=== PATIENT | female | born 1980 | race Caucasian/White ===

== ENCOUNTER 2021-01-19 07:36 | Day surgery (SDC) | payer OTHER ==
[~2021-01-19] VITALS: Ht 162.6 cm; Wt 68.2 kg
[2021-01-19] VITALS (7 sets, daily range): BP systolic 112–137; BP diastolic 72–86
--- NOTE | 2021-01-19 08:15 | NUR ---
PATIENT AMBULATORY TO ROOM 275. PATIENT IS ALERT AND ORIENTED X3. VS OBTAINED. DR DOE NOTIFIED. NEW ORDERS RECEIVED. CONSENT OBTAINED. ADMISSION ASSESSMENT COMPLETED AT THIS TIME. ORIENTED [place] TO ROOM AND UNIT. CALL LIGHT IN REACH. WILL CONTINUE TO MONITOR.
[2021-01-19] MEDS ORDERED: SYNTHROID25 MCG PO (09:07)
--- NOTE | 2021-01-19 09:55 | NUR ---
DR. DOE AT BEDSIDE TO DISCUSS POC AND ESTABLISH IV SITE.
[2021-01-19 10:31] LABS: HEMATOCRIT 32.8 % (37.0-47.0); HEMOGLOBIN 10.7 g/dl (12.0-16.0); IMMATURE GRANULOCYTES 0.1 % (0.0-5.0); MEAN CELL VOLUME 93.7 fL CALC (80.0-100.0); MEAN CORPUSCULAR HGB 30.6 pG CALC (26.0-32.0); MEAN CORPUSCULAR HGB CONC 32.6 g/dL CAL (32.0-36.0); NEUT# 4.77 thou/uL (2.00-7.15); RED BLOOD COUNT 3.5 mill/uL (4.20-5.60); RED CELL DISTRI WIDTH 13.4 % (11.5-15.5)
[2021-01-19 10:43] LABS: ALBUMIN 3.9 g/dL (3.2-5.0); ALKALINE PHOSPHATASE 74 u/l (38-126); ANION GAP 12 (6-22 (CALC)); BILIRUBIN, TOTAL 0.7 mg/dL (0.0-1.4); BUN 18 mg/dL (7-17); BUN/CREATININE RATIO 31 (12-20 (CALC)); CARBON DIOXIDE 23 mmol/l (22-30); CHLORIDE 106 mmol/l (95-108); CREATININE 0.6 mg/dL (0.5-1.0); GFR > 60 ML/MIN (>=60 (CALC)); GFR FOR AFR.AMER. > 60 ML/MIN (>=60 (CALC)); POTASSIUM 4.1 mmol/l (3.5-5.1); SGOT/AST 29 u/l (14-36); SODIUM 136 mmol/l (137-146); TOTAL PROTEIN 6.6 g/dL (6.3-8.2)
--- NOTE | 2021-01-19 11:05 | NUR ---
REASSESS VS. DR. DOE NOTIFIED. NEW ORDERS RECEIVED AT THIS TIME. WILL MEDICATE WHEN MEDICATIONS PROFILED FROM PHARMACY AND CONTINUE TO MONITOR.
--- NOTE | 2021-01-19 13:40 | NUR ---
PT LEFT UNIT IN STABLE CONDITION ACCOMPIANED BY ANR NURSE.
[2021-01-19] MEDS ORDERED: CLONIDINE0.1 MG PO (16:33)
[2021-01-19] MEDS ORDERED: KLONOPIN0.5 MG PO (16:34)
--- NOTE | 2021-01-19 18:35 | NUR ---
PT ARRIVED TO THE FLOOR VIA BED IN STABLE CONDITION. VSS. BED ALARM IN PLACE. CALL LIGHT WITHIN REACH. WILL CONTINUE TO MONITOR.
--- NOTE | 2021-01-19 19:00 | NUR ---
SBAR RECEIVED FROM SADI DE ANDA. PATIENT RESTING QUIETLY IN BED. NO DISTRESS NOTED. BED IN LOW POSITION, LOCKED. BED ALARM ACTIVATED. CALL LIGHT WITHIN REACH.
--- NOTE | 2021-01-19 20:49 | NUR ---
PATIENT HEARD COUGHING FROM HALLWAY. UPON ENTERING ROOM, PATIENT LYING SUPINE VOMITING. IMMEDIATELY TURNED TO LEFT SIDE TO PREVENT ASPIRATION. REGLAN ADMINISTERED IV. PATIENT CLEANED AND REPOSITIONED. CALL LIGHT WITHIN REACH.
--- NOTE | 2021-01-19 22:00 | NUR ---
PATIENT CONTINUES TO VOMIT, REGLAN GIVEN APPROXIMATELY AN HOUR AGO. PATIENT NOW GIVEN PHENERGAN IVPB. WILL CONTINUE TO MONITOR.
--- NOTE | 2021-01-19 22:55 | NUR ---
ATTEMPT TO ADMINISTER 2300 MEDICATION. PATIENT DIFFICULT TO AWAKEN, MAY BE RELATED TO PHENERGAN GIVEN EARLIER. WILL ATTEMPT TO ADMINISTER AGAIN WITHIN THE NEXT HALF HOUR.
[2021-01-20] VITALS: BP 139/91
--- NOTE | 2021-01-20 00:10 | NUR ---
PATIENT VOMITED, IT APPEARS EMESIS INCLUDES BLUE CLONAZEPAM GIVEN. THEN FOLLOWED BY MEDIUM BROWN EMESIS. PATIENT REMAINS DROWSY AND DIFFICULT TO AROUSE, VSS.
[2021-01-20 03:49] VITALS: BP 139/88
--- NOTE | 2021-01-20 03:59 | NUR ---
PATIENT VOMITING, GREEN IN COLOR. SCHEDULED REGLAN DOSE ADMINISTERED. ORAL MEDS HELD FOR NOW. WILL CONTINUE TO MONITOR.
--- NOTE | 2021-01-20 04:47 | NUR ---
ORAL MEDS ADMINISTERED. PATIENT REMAINS DROWSY. BED BATH AND LINEN CHANGE COMPLETE. PATIENT RESTING QUIETLY, CALL LIGHT WITHIN REACH.
[2021-01-20 08:15] VITALS: BP 141/93
--- NOTE | 2021-01-20 08:30 | NUR ---
ASSESSMENT DONE. RESPS EVEN AND UNLABORED. PATIENT IS DROWSY. PATIENT REFUSED BREAKFAST AT THIS TIME. PATIENT TOOK A FEW SIPS OF WATER. PATIENT STATED SHE WANTS TO GO TO THE BATHROOM. COMPUTATIONAL SCIENCES PROFESSOR AND I ASSISTED PATIENT TO THE BATHROOM. PATIENT UNSTEADY ON HER FEET. PATIENT GOWN WET FROM OLD VOMITED PER PATIENT. COMPUTATIONAL SCIENCES PROFESSOR ASSISTED PATIENT WITH A BATH. PATIENT DENIES ANY OTHER NEEDS. CALL LIGHT IN REACH. BED ALARM IN PLACE.
[2021-01-20 08:50] LABS: ALBUMIN 4.1 g/dL (3.2-5.0); ALKALINE PHOSPHATASE 95 u/l (38-126); ANION GAP 15 (6-22 (CALC)); BILIRUBIN, TOTAL 0.7 mg/dL (0.0-1.4); BUN 8 mg/dL (7-17); BUN/CREATININE RATIO 17 (12-20 (CALC)); CARBON DIOXIDE 20 mmol/l (22-30); CHLORIDE 99 mmol/l (95-108); CREATININE 0.5 mg/dL (0.5-1.0); GFR > 60 ML/MIN (>=60 (CALC)); GFR FOR AFR.AMER. > 60 ML/MIN (>=60 (CALC)); SGOT/AST 24 u/l (14-36); SODIUM 130 mmol/l (137-146); TOTAL PROTEIN 7.1 g/dL (6.3-8.2)
--- NOTE | 2021-01-20 09:10 | NUR ---
LABS CALLED TO DR. DOE. NEW ORDERS FOR POTASSIUM 40MEQ PO X1 NOW. NURSE CARING FOR PT NOTIFIED OF NEW ORDERS AT THIS TIME.
--- NOTE | 2021-01-20 11:08 | NUR ---
PATIENT SET OFF THE BED ALARM. PATIENT AMBULATING WITH AN UNSTEADY GAIT TO THE BATHRROM. ASSISTED PATIENT TO THE BATHROOM AND PATIENT VOIDED. ASSISTED PATIENT BACK TO BED. JUICE PROVIDED AND PATIENT TOOK A FEW SIPS. SAFETY PRECAUTIONS REINFORCED AND CALL LIGHT IN REACH. BED ALARM IN PLACE.
--- NOTE | 2021-01-20 11:27 | NUR ---
PATIENT SETOFF THE BEDALARM. STEPHANIE ATKINS NURSE IN ROOM TO ASSIST PATIENT TO THE BATHROOM.
[2021-01-20 12:48] VITALS: BP 132/90
--- NOTE | 2021-01-20 15:05 | NUR ---
PATIENT IS LESS DROWSY BUT UNSTEADY HER FEET. ASSISTED PATIENT TO THE SHOWER. RADIATION THERAPIST ASSISTED PATIENT TO GET DRESS. PATIENT REQUESTING TO WEAR HER OWN CLOTHES. PO FLUIDS PROVIDED. BED ALARM IN PLACE AND CALL LIGHT IN REACH.
--- NOTE | 2021-01-20 15:51 | NUR ---
PATIENT IS SLEEPING ON HER LEFT SIDE. DR. DOE AT BEDSIDE TO ASSESS PATIENT. NOTIFIED DOCTOR THAT SHE DOES NOT HAVE ANY IV SITE. DOCTOR STATED THATS IS FINE AND THAT SHE IS NOT GOING HOME TODAY. BED ALARM IN PLACE AND CALL LIGHT IN REACH.
[2021-01-20 16:29] VITALS: BP 141/80
--- NOTE | 2021-01-20 17:30 | NUR ---
ENCOURAGE PATIENT TO EAT HER DINNER. PATIENT ONLY TOOK TWO BITES OF HER SANDWICH AND FEW SIPS OF WATER. PATIENT DENIES ANY OTHER NEEDS. BED ALARM IN PLACE AND CALL LIGHT IN REACH.
[2021-01-20 19:04] VITALS: BP 139/95
--- NOTE | 2021-01-20 19:20 | NUR ---
PATIENT IN BED, WITH EYES CLOSED LAYING ON HER RIGHT SIDE. NO SIGNS OF PAIN OR DISTRESS NOTED. BED ALARM REMAINS IN PLACE.
--- NOTE | 2021-01-20 20:30 | NUR ---
BROUGHT IN TWO FRESH WATER BOTTLES IN TO PATIENT. ENCOURAGED PATIENT TO DRINK FLUIDS TO STAY HYDRATED. PATIENT SHOOK HER HEAD YES. BED ALARM ON AND FUNCTIONING.
--- NOTE | 2021-01-21 02:25 | NUR ---
PATIENT UTILIZING THE CALL LIGHT AND ASKS FOR ASSISTANCE WHEN NEEDED. ABLE TO MAKE NEEDS KNOWN. AMBULATES TOO AND FROM THE BATHROOM WITHOUT DIFFICULTY WELL. PATIENT ENCOURAGED TO DRINK FLUIDS AND TOLERATING THEM WELL.
--- NOTE | 2021-01-21 03:40 | NUR ---
NO COMPLAINTS OF NAUSEA OR DIARRHEA VOICED AT THIS TIME. NO COMPAINTS OF PAIN VOICED. REMAIN ENCOURAGING FLUIDS. TOLERATING WELL. C/O LIGHTS IN BATHROOM AND GARVIN BOTHERING HER. MODIFIED LIGHTING. BED ALARM REMAINS ON. BELONGINGS AND CALL LIGHT IN REACH.
[2021-01-21 04:44] VITALS: BP 128/69
[2021-01-21 07:45] VITALS: BP 146/85
--- NOTE | 2021-01-21 07:45 | NUR ---
BEDSIDE REPORT RECEIEVED AT CHANGE OF SHIFT. PT LYING IN BED ASLEEP. ASSESSMENT PERFORMED. DISCHARGE PLAN DISCUSSED WITH PT. PT ENCOURAGED TO AMBULATE AND DRINK FLUIDS. PT REPORTS FEELING SLIGHTLY NAUSEOUS BUT WILL TRY TO EAT WHEN BREAKFAST ARRIVES. NO FURTHER COMPLAINTS. WILL CONTINUE TO MONITOR.
--- NOTE | 2021-01-21 09:33 | NUR ---
Discharge instructions given. Patient verbalizes understanding of same. Discharged in stable condition via WHEELCHAIR to Home with family. All belongings sent with pt.
== END 2021-01-21 09:37 | disposition home or self-care (01) | DRG 897 ==
LOC: ANR 07:36 → MS2 08:00 → ANR 14:00
PROVIDERS: ATTEND Anesthesiology
DX: F11.20 Opioid dependence, uncomplicated (principal)
CPT/HCPCS: J2354